=== PATIENT | male | born 1950 | race Caucasian/White ===

== ENCOUNTER 2018-08-10 06:31 | Inpatient (IN) | END 2018-08-27 17:30 | DRG 466 ==

== ENCOUNTER 2018-09-07 16:08 | Inpatient (IN) | END 2018-09-23 11:50 | disposition home health service (06) | DRG 945 ==

== ENCOUNTER → 2019-01-10 | Outpatient (CLI) | payer MEDICARE, OTHER ==
[~2019-01-10] MED LIST: APIX5TAB PO; FERR1TAB14 PO; Furosemide IV; LITH300T5 PO; OXYC-481 PO; PANT40VI7 IV; QUET300T2 PO; SILD20TA PO; TEMA15CA PO; TRA100 PO; Vancomycin Iv Per Pharmacy XX
--- NOTE | 2019-01-10 17:53 | CONS ---
Consult Date/Type/Reason Admit Date/Time Initial Consult Date Date/Time of Note DATE: 01/10/19 TIME: 17:45 Subjective This is a 68-year-old male well-known to me who presents to clinic today after 4 days of weakness and difficulty ambulating. He is about 5 months status post revision left knee to a hinged knee replacement. He was doing very well. He has a complicated medical history including severe pulmonary hypertension, multiple failed back surgeries. He denies any fevers or chills. He was doing rather well with his knee. He denies any injury. He just feels weak and when he walks feels as if he is going to fall. States his neuropathy in his feet and legs is worse than it was before. He has not seen anyone for his back recently or for his difficulty walking. He does not have any pain in his knee. He has severe pain in his back which does radiate down his legs. Objective Vitals Weight: 170 pound Height: 6 foot 1 inches Temperature: 90.4 Heart Rate: 68 Blood Pressure: 160/79 Respiratory Rate: 14 Exam General: Alert, oriented x3. No Acute Distress. Heart: Regular rate and rhythm. Lungs: No respiratory distress. No accessory muscle use. Left lower Extremity: Incision healed. No skin breakdown, no surrounding erythema. ROM: Extension: 0 Flexion: 125 Varus/ Valgus Stability: Stable in extension, flexion, and throughout range of motion A/P Stability: Stable BLE: Sensation markedly decreased to light touch in a sural, saphenous, deep peroneal, superficial peroneal, medial and lateral plantar nerve distribution. Motor is intact, patient able to dorsiflex and plantarflex ankle and extend and flex great toe but is weak 4/5 at best. Dorsalis Pedis pulse +2, Brisk capillary refill. Compartments are soft. Positive Romberg sign. Gait: Slow pace. Unsteady. No gait aid. Results/Medications Home Meds Active Scripts Pantoprazole* (Protonix* IV) 40 Mg Soln, 40 MG IV DAILY@06 for 30 Days Prov:FRANK RAMESH 08/24/18 [Furosemide] 10 MG/ML SOLN No Conflict Check, 20 MG IV BID DIURETICS for 30 Days Prov:FRANK RAMESH 08/24/18 Oxycodone Hcl* (IR) (Roxicodone*) 5 Mg Tab, 20 MG PO Q3H PRN for PAIN LEVEL 8- 10, #10 TAB Prov:FRANK RAMESH 08/24/18 Ferrous Fumarate/Ascorbic Acid (Landon-Sequels 65-25 mg Caplet) 1 Each Tablet.er, 1 TAB PO BID, #60 TAB Prov:FRANK RAMESH 08/24/18 Apixaban* (Eliquis*) 5 Mg Tablet, 5 MG PO BID, #60 TAB Prov:FRANK RAMESH 08/24/18 [Vancomycin Iv Per Pharmacy] 1 EA EACH No Conflict Check, 1 EA XX .Per Rx Protocol for 7 Days Prov:FRANK RAMESH 08/24/18 Reported Medications Trazodone Hcl* (Trazodone Hcl*) 100 Mg Tablet, 100 MG PO TID, #90 TAB 08/10/18 Temazepam* (Temazepam*) 15 Mg Capsule, 15 MG PO HS PRN for INSOMNIA, CAP 08/10/18 Sildenafil Citrate* (Sildenafil Citrate*) 20 Mg Tablet, 20 MG PO TID, TAB 08/10/18 Quetiapine Fumarate* (Seroquel*) 300 Mg Tablet, 300 MG PO BID, TAB 08/10/18 Smiley Carbonate* (Smiley Carbonate*) 300 Mg Tablet, 300 MG PO TID, TAB 08/10/18 Imaging Xrays obtained in clinic today and personally reviewed by myself: Bilateral AP and merchant views and a dedicated lateral of the left knee demonstrates left knee s/p revision hinged TKA with stems and sleeves. Components in good position and alignment. No signs of wear, osteolysis, loosening, component failure, or fracture. No acute complications. Assessment/Plan Hospital Course (Demo Recall) This is a 68-year-old male with multiple medical problems including pulmonary hypertension and multiple failed back surgeries approximately 5 months status post revision left TKA to hinged knee. His recent and acute weakness and disequilibrium is concerning. I do not believe this is related to his knee. There are no signs of infection. He has near 5/5 strength for knee flexion and extension. His gait and disequilibrium is more consistent with a problem either in the spine or cerebellum. The patient is complaining of severe back pain today. He states he has been out of his medication for over a month. He is no longer receiving pain medication from his primary care physician. A CURES report was performed confirming the patient's last narcotic prescription was December 01 for tramadol and November 17 for Percocet. I agreed to give the patient a one-time prescription of narcotic pain medication and provided him with multiple referrals to pain management. I think pain management would help him significantly. I am also recommending that he sees a neurologist to further workup his new disequilibrium. Provided prescription [place](7.5/325) 1-2 tabs orally every 6 hours as needed pain #90 Patient is to follow-up in 6 months for annual follow-up for his left total knee revision ENRIQUE CARTAGENA MD Jan 10, 2019 17:53
--- NOTE | 2019-01-11 16:32 | RADRPT ---
PROCEDURE: XR Knees. CLINICAL INDICATION: Bilateral knee pain. TECHNIQUE: Total of six views. Frontal, oblique, and lateral views of both knees. COMPARISON: No prior study is available for comparison. FINDINGS: On the right side, there are degenerative changes with small osteophytes arising from all 3 joint com partment margins. There is medial joint compartment narrowing. There is no joint effusion. There is n o fracture or dislocation. There is no lytic or blastic lesion. On the left side, there is a constrained total knee arthroplasty which appears satisfactory with no f racture, dislocation, or loosening. There is no joint effusion. There is no lytic or blastic lesion. Vascular calcifications are present bilaterally consistent with atherosclerosis. IMPRESSION: 1. Moderate degenerative changes of the right knee. 2. Satisfactory postoperative appearance of the left knee. 3. Atherosclerosis. 4. Otherwise unremarkable study. RPTAT: QQ .Giovanni Joe MD, Date Time Electronically viewed and signed by .Giovanni Joe MD, on 01/11/2019 16:31 .R/
== END | disposition home or self-care (01) ==
LOC: HKI 13:19
PROVIDERS: ATTEND Orthopaedic Surgery Adult Reconstructive Orthopaedic Surgery
DX: R53.1 Weakness (principal); I27.20 Pulmonary hypertension, unspecified; M54.9 Dorsalgia, unspecified
CPT/HCPCS: 73562; G0463